=== PATIENT | female | born 1950 | race Caucasian/White ===

== ENCOUNTER → 2016-07-13 | Outpatient (REF) ==
[2016-07-13 16:40] LABS: C-REACTIVE PROTEIN 0.5 mg/dL (0.0-0.9)
[2016-07-13 17:03] LABS: THYROID STIMULATING HORMONE 0.195 uIU/mL (0.465-4.680)
== END ==
LOC: ZLAB.WCH 16:11
PROVIDERS: Internal Medicine
DX: Z01.89 Encounter for other specified special examinations (principal)

== ENCOUNTER → 2016-09-17 | Outpatient (REF) ==
[2016-09-17 12:46] LABS: THYROID STIMULATING HORMONE 0.538 uIU/mL (0.465-4.680)
== END ==
LOC: ZLAB.WCH 11:31
PROVIDERS: Internal Medicine
DX: Z01.89 Encounter for other specified special examinations (principal)

== ENCOUNTER → 2017-03-11 | Outpatient (REF) | LOC: ZLAB.WCH 08:51 | DX: Z01.89 Encounter for other specified special examinations (principal) ==

== ENCOUNTER → 2017-04-12 | Outpatient (REF) | LOC: ZLAB.WCH 19:40 | DX: Z01.89 Encounter for other specified special examinations (principal) ==

== ENCOUNTER → 2017-08-03 | Outpatient (REF) | LOC: ZLAB.WCH 18:19 | DX: Z01.89 Encounter for other specified special examinations (principal) ==

== ENCOUNTER → 2017-08-11 | Outpatient (CLI) | payer MEDICARE, OTHER | LOC: COL.RAD 13:00 | DX: N39.3 Stress incontinence (female) (male) (principal); N39.41 Urge incontinence | CPT/HCPCS: Q9967 ==

== ENCOUNTER → 2018-09-13 | Outpatient (REF) | LOC: ZLAB.WCH 17:24 | DX: Z01.89 Encounter for other specified special examinations (principal) ==